=== PATIENT | female | born 1975 | race Caucasian/White ===

== ENCOUNTER 2021-11-04 18:32 | Emergency (ER) | payer BC ==
[2021-11-04 19:08] VITALS: BP 127/87; PULSE 79
[2021-11-04] MEDS ORDERED: Ketorolac 15 MG/ML SDV IM ONE (19:17)
[2021-11-04] MEDS ORDERED: Acetaminophen 325 MG Tab PO ONE (19:18)
== END 2021-11-04 20:40 | disposition home or self-care (01) ==
LOC: JD.ED 18:32
DX: M25.562 Pain in left knee (principal)
CPT/HCPCS: 73562; 96372; 99283; A9270; J1885; 99282